=== PATIENT | female | born 1995 | race Caucasian/White ===

== ENCOUNTER → 2019-07-24 14:32 | Outpatient (CLI) | payer OTHER, SELFPAY ==
--- NOTE | 2019-07-24 14:39 | XR_ITS ---
PROCEDURE: XR HAND RT MIN 3V CLINICAL INDICATION: Thumb pain Posttraumatic pain COMPARISON: No exams were available for comparison FINDINGS: No fracture or dislocation. No lytic or blastic change. There is normal mineralization. The joint spaces are well-preserved. No significant degenerative/arthritic changes. No erosive changes evident. Other findings:None. IMPRESSION: No acute findings. Dictated by: Marquez Humphrey MD 07/24/2019 15:40 Electronically signed by Marquez Humphrey MD in [place] 07/24/2019 15:40
== END ==
PROVIDERS: PCP Family Medicine; Visit Provider Orthopaedic Surgery
DX: S69.91XA Unspecified injury of right wrist, hand and finger(s), initial encounter (principal)
CPT/HCPCS: 73130

== ENCOUNTER → 2019-08-20 14:24 | Outpatient (CLI) | payer BC, SELFPAY ==
--- NOTE | 2019-08-20 14:33 | CT_ITS ---
PROCEDURE: CT SOFT TISSUE NECK W CON CLINICAL HISTORY: NODULE Left posterior neck nodule with pain COMPARISON: No exams were available for comparison TECHNIQUE: Oral Contrast: 75ml Optiray 350 IV Contrast: None Axial images obtained with sagittal and coronal reformats. All CT scans at the facility use one or more dose reduction, viz: automated exposure control, ma/kV adjustment per patient size (including targeted exams where dose is matched to indication, i.e. head), or iterative reconstruction technique. FINDINGS: The nasopharynx, oropharynx, hypopharynx, epiglottis and glottic region have an unremarkable appearance as does the thyroid gland. A BB is placed along the posterior and left aspect of the neck at the C3 level. There is a small area of enhancement just medial and very slightly superior to the placed BB possibly due to a small vein in the subcutaneous region. This area measures approximately 4 x 1 mm but is not directly beneath the placed BB. No dominant adenopathy apparent. The lung apices are clear. No acute bony findings. No fluid collections. No abscess or cysts. There are scattered small nodes in both sides of the neck which are nonspecific. IMPRESSION: 1. Small area of enhancement measuring 4 x 1 mm is noted just superior and medial to the placed BB along the left aspect of the neck posteriorly and may be due to small subcutaneous vein. Consider 3 month follow-up to confirm stability no adenopathy or other abnormalities evident. 2. Otherwise negative Dictated by: Marquez Humphrey MD 08/21/2019 10:06 Electronically signed by Marquez Humphrey MD in [place] 08/21/2019 10:06
== END ==
PROVIDERS: PCP Family Medicine; Visit Provider Physician Assistant
DX: R22.1 Localized swelling, mass and lump, neck (principal)
CPT/HCPCS: 70491; Q9967

== ENCOUNTER → 2020-06-11 11:26 | Outpatient (CLI) | payer OTHER, SELFPAY ==
[2020-06-11 12:08] LABS: Basophils % 0.5 % (0.1-2.0); Eosinophils # 0.1 K/mm3 (0.0-0.4); Eosinophils % 1.1 % (0.1-12.0); Hematocrit 38.8 % (37.0-47.0); Hemoglobin 12.3 g/dL (12.2-16.2); Lymphocytes # 1.6 K/mm3 (0.7-4.5); Mean Corpuscular HGB Conc 31.8 g/dL (31.8-35.4); Mean Corpuscular Hemoglobin 29.2 pg (27.0-31.2); Mean Corpuscular Volume 91.8 fl (81-99); Mean Platelet Volume 7.7 fl (7.4-10.4); Monocytes # 0.3 K/mm3 (0.1-1.0); Monocytes % 3.4 % (1.7-9.3); Neutrophils # 5.9 K/mm3 (1.8-7.8); Neutrophils % 75.1 % (37.0-80.0); Platelet Count 245 K/mm3 (142-424); Red Blood Count 4.23 M/mm3 (4.20-5.40); Red Cell Distribution Width 13.3 % (11.5-17.5); White Blood Count 7.9 K/mm3 (4.8-10.8)
== END ==
PROVIDERS: PCP Family Medicine; Visit Provider Family Medicine
DX: Z03.818 Encounter for observation for suspected exposure to other biological agents ruled out (principal); J06.9 Acute upper respiratory infection, unspecified
CPT/HCPCS: 85025; U0003

== ENCOUNTER → 2021-08-26 11:52 | Outpatient (CLI) | payer BC, SELFPAY ==
[2021-08-26 14:35] LABS: Strep Scrn Group A (Rapid) Negative (Negative)
== END ==
PROVIDERS: PCP Internal Medicine; Visit Provider Internal Medicine
DX: R50.9 Fever, unspecified (principal); J02.9 Acute pharyngitis, unspecified
CPT/HCPCS: 87275; 87276; 87430

== ENCOUNTER → 2021-08-29 15:10 | Outpatient (CLI) | payer BC, SELFPAY | PROVIDERS: Visit Provider Nurse Practitioner | DX: U07.1 COVID-19 (principal) | CPT/HCPCS: C9803; U0003; U0005 ==

== ENCOUNTER → 2021-10-25 20:01 | Outpatient (CLI) | payer BC, SELFPAY ==
[2021-10-25 20:21] LABS: Urine Pregnancy, HCG Qual. Negative (Negative)
== END ==
PROVIDERS: PCP Internal Medicine; Visit Provider Internal Medicine
DX: N92.6 Irregular menstruation, unspecified (principal); N39.0 Urinary tract infection, site not specified; B95.8 Unspecified staphylococcus as the cause of diseases classified elsewhere
CPT/HCPCS: 81025; 87086; 87088; 87186

== ENCOUNTER 2022-08-20 22:18 | Emergency (ER) | payer BC, SELFPAY ==
[2022-08-20 22:19] VITALS: BP 138/96; PULSE 93; RESP 16; TEMP 36.8; O2SAT 100; BMI 16.7
[2022-08-20 22:29] VITALS: BMI 16.7
[2022-08-20 22:30] VITALS: BP 138/96; PULSE 97; O2SAT 100
[2022-08-20 22:34] LABS: Microscopic, Urine URINE MICROSCOPIC (MICROSCOPIC)
[2022-08-20 22:35] LABS: Appearance,Urine CLEAR (Clear); Bilirubin,Urine Negative (Negative); Blood, Urine 3+ (Negative); Color,Urine YELLOW (Yellow); Glucose,Urine (UA) Negative (Negative); Ketones,Urine TRACE (Negative); Leukocyte Esterase,Urine Negative (Negative); Nitrate,Urine Negative (Negative); Protein,Urine Negative (Negative); Specific Gravity, Urine 1.025 (1.005-1.030); Urine Pregnancy, HCG Qual. Positive (Negative); Urobilinogen,Urine 0.2 EU/dl (0.2)
[2022-08-20 22:43] LABS: Basophils # 0.1 K/mm3 (0-0.2); Basophils % 1.1 % (0.1-2.0); Eosinophils # 0.2 K/mm3 (0.0-0.4); Eosinophils % 1.5 % (0.1-12.0); Hematocrit 40.3 % (37.0-47.0); Hemoglobin 13.5 g/dL (12.2-16.2); Lymphocytes # 2.5 K/mm3 (0.7-4.5); Lymphocytes % 24.8 % (10-50); Mean Corpuscular HGB Conc 33.4 g/dL (31.8-35.4); Mean Corpuscular Hemoglobin 30.9 pg (27.0-31.2); Mean Corpuscular Volume 92.5 fl (81-99); Mean Platelet Volume 7.7 fl (7.4-10.4); Monocytes # 0.5 K/mm3 (0.1-1.0); Monocytes % 4.8 % (1.7-9.3); Neutrophils # 6.9 K/mm3 (1.8-7.8); Neutrophils % 67.9 % (37.0-80.0); Platelet Count 252 K/mm3 (142-424); Red Blood Count 4.35 M/mm3 (4.20-5.40); Red Cell Distribution Width 13.4 % (11.5-17.5); White Blood Count 10.1 K/mm3 (4.8-10.8)
[2022-08-20 22:50] LABS: Bacteria,Urine 1+ /lpf; WBC,Urine Occasional #/hpf (0-3)
[2022-08-20 22:52] LABS: Alanine Aminotransferase 15 U/L (12-78); Albumin Level 4.8 g/dl (3.5-5.0); Albumin/Globulin Ratio 1.8 (1.1-1.8); Alkaline Phosphatase 65 U/L (38-126); Anion Gap 12.6 mEq/L (5-15); Aspartate Amino Transferase 26 U/L (14-36); Bilirubin,Total 0.3 mg/dl (0.2-1.3); Blood Urea Nitrogen 17 mg/dl (7-17); Calcium 8.8 mg/dl (8.4-10.2); Carbon Dioxide 24 mmol/L (22.0-30.0); Chloride 106 mmol/L (98-107); Creatinine Clearance Estimated 94 mL/min (50-200); Estimated Glomerular Filt Rate 100 ml/min (>60); GFR (African American) 121 ML/MIN (>60); Globulin 2.7 g/dL (1.3-3.2); Glucose 79 mg/dl (74-100); Potassium 3.6 mmoL/L (3.5-5.1); Sodium 139 mmol/L (136-145); Total Protein,Serum 7.5 g/dl (6.3-8.2)
[2022-08-20 23:10] VITALS: BP 110/85; PULSE 74; O2SAT 100
[2022-08-20 23:21] LABS: HCG,Quantitative 6704 mIU/ml (0-5.42)
--- NOTE | 2022-08-20 23:21 | HMH.EDUROGF ---
Discharge Plan Disposition Patient Disposition: Home, Self-Care Chief Complaint: Vaginal Bleeding Prescriptions Prescriptions: No Action norgestimate-ethinyl estradiol 1 EACH tablet 1 tab PO DAILY Referrals Follow up/Referrals: Jhonny Anna APRN [Primary Care Provider] - See instructions Clinical Impressions Clinical Impression: , Hemorrhage, , early Instructions Patient Instructions: Threatened Miscarriage Discharge ED Provider: Fred Bolden Female Urogenital HPI General Chief complaint: Vaginal Bleeding Stated complaint: 5 wks abd pain, bleeding Time Seen by Provider: 08/20/22 23:21 Mode of Arrival: Ambulatory Source of Information: Patient and Medical Record Limitations: No Limitations Description of Symptoms (Recalled from ER Triage Doc. by RN): pt states she 5 weeks and has first ob appointment on . pt c/o cramping and small amount of bleeding. History of Present Illness HPI Narrative: pt with early and episode of vag bleeding tonight and crampy abd pain - MD Complaint: vaginal bleeding Onset (ago): hour(s) Severity: moderate Duration: intermittent : Yes Related Data Home Medications Medication Instructions Recorded Confirmed norgestimate 0.25 mg-ethinyl 1 tab PO DAILY bc 05/30/19 07/24/19 estradiol 35 mcg tablet Allergies Allergy/AdvReac Type Severity Reaction Status Date / Time No Known Allergies Allergy Unverified 08/20/19 15:27 [facility] Disclaimer: The information contained in this section may have been updated after the patient was seen, as this information can be updated by other users. Social History Smoking Status: Never smoker alcohol intake: never substance use type: denies use current occupational status: employed Travel in the last 8 weeks: None ROS Obtained: Yes All systems reviewed & no additional complaints except as documented Physical Exam General General appearance: alert Head Head exam: normocephalic Eye Eye exam: Present PERRL and EOMI ENT ENT exam: Present mucous membranes moist Neck Neck exam: Present trachea midline Respiratory Respiratory exam: Absent respiratory distress Cardiovascular Cardiovascular exam: Present regular rate Abdominal Exam Abdominal exam: Present soft; Absent tenderness Extremities Exam Extremities exam: Present full ROM Neurological Exam Neurological exam: Present alert, oriented X3 and CN II-XII intact Psychiatric Psychiatric exam: Present normal affect Skin Skin exam: Absent rash Medical Decision Making Medical Records Medical records reviewed: Yes I reviewed the patient's medical records. Hang Inquiry Pt receiving controlled substance: No Vital Signs: 08/20/22 22:19 08/20/22 22:30 08/20/22 23:10 Temperature 98.2 F Temperature Source Oral Pulse Rate 97 H 74 Pulse Rate [Right] 93 H Respiratory Rate 16 Blood Pressure 138/96 H 110/85 Blood Pressure [Right Arm] 138/96 H Blood Pressure Mean [Right Arm] 110 02 Sat by Pulse Oximetry 100 100 100 Lab Data Lab results reviewed: Yes I reviewed the patient's lab results. Lab Results 08/20/22 22:26: Urine Color Yellow, Urine Appearance Clear, Urine pH 6.0, Ur Specific Seeley 1.025, Urine Protein Negative, Urine Glucose (UA) Negative, Urine Ketones Trace, Urine Blood 3+, Urine Nitrate Negative, Urine Bilirubin Negative, Urine Urobilinogen 0.2, Ur Leukocyte Esterase Negative, Urine RBC 5-10, Urine WBC Occasional, Ur Squamous Epith Cells 3-5, Urine Bacteria 1+ 08/20/22 22:26: Urine HCG, Qual Positive 08/20/22 22:34: WBC 10.1, RBC 4.35, Hgb 13.5, Hct 40.3, MCV 92.5, MCH 30.9, MCHC 33.4, RDW 13.4, Plt Count 252, MPV 7.7, Neut % (Auto) 67.9, Lymph % (Auto) 24.8, Tillman % (Auto) 4.8, Eos % (Auto) 1.5, Baso % (Auto) 1.1, Neut # (Auto) 6.9, Lymph # (Auto) 2.5, Tillman # (Auto) 0.5, Eos # (Auto) 0.2, Baso # (Auto) 0.1 08/20/22 22:34: Sodium 139, Potassium 3.6, Chloride 106, Ca
--- NOTE | 2022-08-20 23:23 | US_ITS ---
PROCEDURE INFORMATION: Exam: US , Transvaginal Exam date and time: 08/20/2022 11:59 PM Age: 26 years old Clinical indication: Lmp or gestational age (in weeks): Unsure 8w5d or 4w5d; Antepartum complications; Bleeding; complicated by abdominal or pelvic pain; Lower; First trimester (<14 weeks 0 days); ; Patient HX: Spotting and cramping-- PT unsure of last lmp-- [facility] [id number] tonight; Additional info: Pelvic pain with bleeding - positive preg test TECHNIQUE: Imaging protocol: Real-time transvaginal obstetrical ultrasound of the maternal pelvis with image documentation. Transvaginal imaging was used for better evaluation of the fetus, adnexa, and/or cervix. COMPARISON: No relevant prior studies available. FINDINGS: Gestation: No viable intrauterine seen. There is mild endometrial thickening with echogenic material in the other endometrial canal which could represent retained products of conception or blood products. Endometrial stripe thickness measures approximally 1.5 cm. Uterus is otherwise unremarkable. The right ovary measures 4.3 x 2.4 x 3.0 cm and contains a 1.6 cm simple thin-walled cyst. Left ovary appears normal, measuring 3.0 x 1.6 x 1.6 cm. No suspicious adnexal mass or free fluid seen. IMPRESSION: No evidence of viable intrauterine . Mild endometrial thickening with echogenic material concerning for retained products of conception or blood products. 1.6 cm simple right ovarian cyst incidentally noted.
--- NOTE | 2022-08-20 23:29 | PC.NURSE ---
in room w/ pt @ this time.
[2022-08-20 23:30] VITALS: BP 131/95; PULSE 83; O2SAT 100
[2022-08-21 00:24] VITALS: BP 105/65; PULSE 73; O2SAT 100
[2022-08-21 00:54] VITALS: BP 102/71; PULSE 72; RESP 18; TEMP 37.1; O2SAT 99
== END 2022-08-21 00:58 | disposition home or self-care (01) ==
PROVIDERS: Emergency Provider Emergency Medicine; PCP Nurse Practitioner Family
DX: O20.0 Threatened abortion (principal)
CPT/HCPCS: 76817; 80053; 81001; 81025; 84702; 85025; 86900; 86901; 96360; 96372; 99285

== ENCOUNTER 2025-07-30 14:52 | Outpatient (CLI) | payer BC, SELFPAY ==
--- OUTSIDE RECORDS SUMMARY | 2024-08-19 10:45 | XMS_ITS ---
Author Organization [facility] Address [address] [place] [id number] Care Team Providers Care Steel Crane Operator Name Role Phone Lobo Aponte Primary Care Provider Chris Kerns Unavailable [phone] Allergies No Known Allergies Results Component Value Reference Range Notes CBC Fingerstick (in house) Reviewed date:08/19/2024 04:26:09 PM Interpretation: Performing Lab: Notes/Report: wbc 7.9 3.5 - 10 lym 17.8 15 - 50 mid 6.3 2 - 15 gran 75.9 35 - 80 rbc 4.13 3.5 - 5.5 hgb 11.9 11.5 - 16.5 hct 35.6 35 - 55 mcv 86.0 75 - 100 mch 28.7 25 - 35 mchc 33.4 31 - 38 plat 191 100 - 400 REASON FOR VISIT congestion,sore throat Medications Medication SIG (Take, Route, Frequency, Duration) Notes Start Date End Date Status Cefuroxime Axetil 250 MG 1 tablet Orally Two times a day 08/19/2024 Active Vital Signs Blood pressure systolic 110 mm Hg 08/19/19 25 Blood pressure diastolic 74 mm Hg 025 Heart Rate 94 /min 08/19/2024 Height 67.50 in 08/19/2024 Weight 108.6 lbs 08/19/2024 BMI 16.76 kg/m2 08/19/2024 Encounters Encounter Location Date Provider Diagnosis [facility] [address] [facility] [address] [place] [id number] 08/19/2024 Chris Kerns Acute sinusitis J01.90 Assessments Encounter Date Diagnosis (ICD Code) Assessment Notes Treatment Notes Treatment Clinical Notes Section Notes 08/19/2024 Acute sinusitis (ICD-10 - J01.90) Plan Of Treatment Medication Medication Name Sig Start Date Stop Date Notes Cefuroxime Axetil 250 MG 1 tablet Orally Two times a day 0 08/19/2024 Next Appt Details Follow Up: prn, Reason: Progress Notes * DRAKE ROLAND MDOB: 4 (29 yo F)Acc No.[id number]:08/19/2024 Progress Notes Patient: DRAKE HAWKINS Provider: Chris Kerns M.D. :1995 A ge:28 Y S ex:Female Date:08/19/2024 Address:[address] [place], [place] [id number] Pcp:Lobo Aponte Subjective: * Chief Complaints: * 1 . Congestion,sore throat. * HPI: E NT/respiratory: 28 year old female presents with c/o nasal congestion P t presents today with c/o cough w/ very little sputum production. Pt sts that she has a lot of nasal congestion and runny nose. Pt sts that she has had mild body aches. Pt sts that she has been sick for about 5 days but sts that her symptoms have worsened over the last two days. c/o body aches.? * ROS: C ARDIOLOGY: no C hest pain. n o P alpitations. D ERMATOLOGY: no R matt. n o H jovany. U ROLOGY: no D ifficulty urinating. n o B lood in urine. * Medical History: S calp laceration requiring sutures in 2002, Asthma. * Surgical History: l ymph node excisional biopsy 08-20-08, DNC following Miscarriage 09/2022, Granulated Tissue Removal 07/2024. * Hospitalization/Major Diagno stic Procedure: H ER-cut to right ear 05/15/10, ER [facility] due to chest pains 09/14-, [facility] ER - hand May 2019. * Family History: F ather: alive 58 yrs. M other: alive 53 yrs. 1 sister(s) . . * Social History: C URRENT TOBACCO USE S moking Status: P atfarhad does NOT smoke. C affeine: yes, frequency:occasional. Marital Status: Single. Past smoking status: no. Recreational drug use: no. Alcohol: No. Sexually active: no.. * Medications: D iscontinued Sprintec 28 0.25-35 MG-MCG Tablet 1 tab(s) orally once a day , Discontinued Amoxicillin 875 MG Tablet 1 tab(s) orally every 12 hours , Medication List reviewed and reconciled with the patient * Allergies: N .K.D.A. Objective: * Vitals: W t:108.6, Temp:98.3, BP:110/74, HR:94, Nurse:RUSSEL, Ht: 67.50, BMI:16.76. Assessment: * Assessment: 1. A emily sinusitis - J01.90 (Primary) Plan: * Treatment: Value Reference Range w bc 7.9 3.5 - 10 * l ym 17.8 15 - 50 * m id 6.3 2 - 15 * g ran 75.9 35 - 80 * r bc 4.13 3.5 - 5.5 * h gb 11.9 11.5 - 16.5 * h ct 35.6 35 - 55 * m cv 86.0 75 - 100 * m ch 28.7 25 - 35 * m chc 33.4 31 - 38 * p lat 191 100 - 400 * Osiris Gomez 08/19/2024 4:25: 46 PM > results reviewed w/ pt in office * Procedure Codes: 3 6416 CAPILLARY BLOOD DRAW, 67839 CBC WITH AUTO DIFF * Follow Up: p rn * Images: Billing Information: * Visit Code: 72304 Office Visit, Est Pt., Level 3. * Procedure Codes: 34922 CAPILLARY BLOOD DRAW. 09920 CBC WITH AUTO DIFF. * Electronic signature of Chris Kerns MD on 07/30/2025 at 02:58 PM EST Sign off status: Pending * Provider: Chris Kerns M.D. Date: 0 08/19/2024 Generated for Holleyi alicia/Lyssa/eTmartaitting on: 09/30/2024 02:58 PM EST History and Physical Notes * HPI (History of Present Illness) Category Sub-Category Detail Notes Category Not es ENT/respiratory nasal congestion Pt presents tod ay with c/o cough w/ very little sputum production. Pt sts that she has a lot of nasal congestion and runny nose. Pt sts that she has had mild body aches. Pt sts that she has been sick for about 5 days but sts that her symptoms have worsened over the last two days body aches
--- OUTSIDE RECORDS SUMMARY | 2025-04-21 11:00 | XMS_ITS ---
Author Organization [facility] Address [address] [facility] [address] [place] [id number] Care Team Providers Care Group Home Counselor Name Role Phone Lobo Aponte Primary Care Provider Laura Da Silva Unavailable [phone] Allergies No Known Allergies REASON FOR VISIT ear infection Medications Medication SIG (Take, Route, Fr equency, Duration) Notes Start Date End Date Status Ofloxacin 0.3 % 5 drops into affecte d right ear Otic twice a day; Duration: 7 days 04/21/2025 Ac tive Problems Problem Type SNOMED Code ICD Code Onset Dates Problem Status W/U Status Risk Notes Problem Acute otitis externa of right ear (093446880459 9104) Acute otitis externa of right ear (H60.91) Active confirmed Vital Signs Blood pressure systolic 100 mm Hg 04/21/20 25 Blood pressure diastolic 70 mm Hg 025 Heart Rate 64 /min 04/21/2025 Height 67.50 in 04/21/2025 Weight 118.4 lbs 04/21/2025 BMI 18.27 kg/m2 04/21/2025 Encounters Encounter Location Date Provider Diagnosis [place] [address] [place] [phone] 04/21/2025 Laura Da Silva Acute otitis externa of right ear H60.91 Assessments Encounter Date Diagnosis (ICD Code) Assessment Notes Treatment Notes Treatment Clinical Notes Section Notes 04/21/2025 Acute otitis externa of right ear (ICD-10 - H60.91) to keep ear dry except for med; dry heat application prn discomfort Plan Of Treatment Medication Medication Name Sig Start Date Stop Date Notes Ofloxacin 0.3 % 5 drops into affecte d right ear Otic twice a day; Duration: 7 days 04/21/2025 Treatment Notes Assessment Notes Acute otitis externa of right ear to kevin p ear dry except for med; dry heat application prn discomfort Next Appt Details Follow Up: prn, Reason: Progress Notes * DRAKE PACHECO MDOB: 4 (29 yo F)Acc No.[id number]:04/21/2025 Progress Notes Patient: DRAKE HAWKINS Provider: ALYSSA Chavez :1995 A ge:29 Y S ex:Female Date:04/21/2025 Address:[address] [facility], [place], [id number] Pcp:Lobo Aponte Subjective: * Chief Complaints: * 1 . Ear infection. * HPI: E NT/respiratory: eating/drinking OK. 29 year old female presents with c/o ear pain P t states she has been having ear pain for 3 weeks. Pt states no drainage or popping. Pt states she has put ear drops in her ears last week and still not feeling good . Denies : sore throat. D enies : cough. D enies : nasal congestion. D enies : Fever. D enies : post nasal drainage. D enies : Chest Pain. D enies : Short of Breath. D enies : headache. D enies : chest congestion. D enies : smoking. D enies : dizziness. D enies : body aches. D enies : ear stopped up. D enies : ringing in ear. D enies : Ear Drainage. * ROS: D ERMATOLOGY: no R matt. n o H jovany. G ASTROENTEROLOGY: no N ausea. n o V omiting. n o D iarrhea.? U ROLOGY: no D ifficulty urinating. n o B lood in urine. * Medical History: S calp laceration requiring sutures in 2002, Asthma. * Surgical History: l ymph node excisional biopsy 08-20-08, DNC following Miscarriage 09/2022, Granulated Tissue Removal 07/2024. * Hospitalization/Major Diagno stic Procedure: H ER-cut to right ear 05/15/10, ER [facility] due to chest pains 09/14-, [facility] ER - hand May 2019. * Family History: F ather: alive 58 yrs. M other: alive 53 yrs. 1 sister(s) . . * Social History: C URRENT TOBACCO USE S moking Status: P atient does NOT smoke. C affeine: yes, frequency:occasional. Marital Status: Single. Past smoking status: no. Recreational drug use: no. Alcohol: No. Sexually active: no.. * Medications: D iscontinued Cefuroxime Axetil 250 MG Tablet 1 tablet Orally Two times a day , Medication List reviewed and reconciled with the patient * Allergies: N .K.D.A. Objective: * Vitals: W t: 118.4, Temp: 97.6, BP: 100/70, HR: 64, Nurse: veronika, Ht: 67.50, BMI:18.27. * Examination: G eneral Examination: General Appearance: N AD, appears healthy, alert, pleasant.?HEENT: s clera and conjunctiva clear, PERRLA, TM's normal, translucent; right ear canal with edema. O ral cavity: m ucosa moist and WNL, no erythema. N christos: s upple, no lymphadenopathy. H eart: R RR. L ungs: C TAB A&P. N eurologic Exam: a lert and oriented. Assessment: * Assessment: 1. A cute otitis externa of right ear - H60.91 (Primary) Plan: * Treatment: * Follow Up: p rn * Images: Billing Information: * Visit Code: 15582 Office Visit, Est Pt., Level 3. * Procedure Codes: * Electronic signature of Jeanine Da Silva APRN on 07/30/2025 at 02:58 PM EST Sign off status: Pending * Provider: ALYSSA Chavez Date: 0 04/21/2025 Generated for Selam vargas/Lyssa/Daviditting on: 1 09/30/2024 02:58 PM EST History and Physical Notes * HPI (History of Present Illness) Category Sub-Category Detail Notes Category Not es ENT/respiratory sore throat ear pain Pt states she has be en having ear pain for 3 weeks. Pt states no drainage or popping. Pt states she has put ear drops in her ears last week and still not feeling good Short of Breath Chest Pain cough Fever post nasal drainage headache chest congestion nasal congestion smoking dizziness body aches ear stopped up ringing in ear Ear Drainage Examination Category Sub-Category Detail Notes Category Not es General Examination HEENT: sclera and c onjunctiva clear, PERRLA, TM's normal, translucent; right ear canal with edema Heart: RRR Lungs: CTAB A&P General Appearance: NAD, appears healthy , alert, pleasant Neurologic Exam: alert and oriented Neck: supple, no lymphaden opathy Oral cavity: mucosa moist and WNL , no erythema
--- NOTE | 2025-07-30 14:45 | US_ITS ---
FINAL REPORT CLINICAL HISTORY: right sided lymphdenopathy COMPARISON: None FINDINGS: ULTRASOUND SOFT TISSUE NECK: Ultrasound examination of the soft tissues of the neck revealed normal-appearing salivary glands bilaterally. There are bilateral lymph nodes noted in the cervical soft tissues, on the right measuring up to 2.2 cm and on the left 1.2 cm. Most of these contain fatty cem suggesting benign adenopathy. Several of the larger nodes may represent reactive adenopathy. IMPRESSION: Multiple cervical lymph nodes noted as described, several of which may represent reactive adenopathy. Normal-appearing salivary glands bilaterally. Reviewed, Interpreted and Dictated by Emery Mckeon MD Transcribed by Li Serrano Authenticated and [facility]
--- OUTSIDE RECORDS SUMMARY | 2025-07-30 14:59 | XMS_ITS | Patient Health Record ---
Author Organization [facility] Address [address] [place] [phone] Care Team Providers Care Forecast Analyst Name Role Phone Lobo Aponte Primary Care Provider Chris Kerns Unavailable [phone] Laura Da Silva Unavailable [phone] Allergies No Known Allergies Results Component Value [...] - 38 plat 191 100 - 400 Medications Medication SIG (Take, Route, Fr equency, Duration) Notes Start Date End Date Status Ofloxacin 0.3 % 5 drops into affecte d right ear Otic twice a day; Duration: 7 days 04/21/2025 Ac tive Immunizations Vaccine Route Administration Date Status Comme nts ppd ID Intradermal 04/20/2015 Administered Problems Problem Type SNOMED Code ICD Code Onset Dates Problem Status W/U Status Risk Notes Problem Acute otitis externa of right ear (2821626468482 104) Acute otitis externa of right ear (H60.91) Active confirmed Problem Seasonal allergic rhinitis (705721864) Seasonal allergic reaction (J30.2) Active confirmed Problem Allergic rhinitis (84576767) Seasonal allergic rhinitis due to other allergic trigger (J30.89) Active confirmed Vital Signs Heart Rate 64 /min 04/21/2025 Blood pressure diastolic 70 mm Hg 04/21/2025 Height 67.50 in 04/21/2025 Blood pressure systolic 100 mm Hg 04/21/2025 Weight 118.4 lbs 04/21/2025 BMI 18.27 kg/m2 04/21/2025 Encounters Encounter Location Date Provider Diagnosis [facility] [address] [facility] [address] [place] [id number] 08/19/2024 Chris Bendereet Acute sinusitis J01.90 [facility] [address] [facility] [address] [place] [phone] 04/21/2025 Laura Da Silva Acute otitis externa of right ear H60.91 Assessments Encounter Date Diagnosis (ICD Code) Assessment Notes Treatment Notes Treatment Clinical Notes Section Notes 08/19/2024 Acute sinusitis (ICD-10 - J01.90) 04/21/2025 Acute otitis externa of right ear (ICD-10 - H60.91) to keep ear dry except for med; dry heat application prn discomfort Plan Of Treatment No Information Insurance Providers Payer Name Payer Address Payer Phone Subscriber Number Group Number Insured Name Patient Relationship to Insured Coverage Start Date Coverage End Date [employer] [address] [place] [address] [phone] [id number] DRAKE ROLAND Self - patient is the insured Medical (General) History Medical History History ICD Code Scalp laceration requiring sutures in 30 10 Asthma Surgical History Surgery Date(Month/Year) lymph node excisional biopsy 08-20-08 DNC following Miscarriage 09/2022 Granulated Tissue Removal 07/2024 Hospitalization History Reason Date(Month/Year) [facility] ER - hand May 2019 ER [facility] due to chest pains 09/14 - [facility] ER-cut to right ear 05/15/10
== END 2025-07-30 23:59 | disposition home or self-care (01) ==
LOC: RAD 14:53
PROVIDERS: PCP Internal Medicine; Visit Provider Nurse Practitioner
DX: R59.0 Localized enlarged lymph nodes (principal)
CPT/HCPCS: 76536